=== PATIENT | female | born 1990 | race Caucasian/White ===

== ENCOUNTER 2020-01-06 13:33 | Emergency (ER) | payer SELFPAY ==
[~2020-01-06] VITALS: Ht 172.7 cm; Wt 90.0 kg
[2020-01-06 13:42] VITALS: BP 99/63
== END 2020-01-06 14:12 | disposition left against medical advice (07) ==
LOC: ER 14:06
DX: Z53.21 Procedure and treatment not carried out due to patient leaving prior to being seen by health care provider (principal)